=== PATIENT | male | born 2000 | race Caucasian/White ===

== ENCOUNTER 2018-09-03 22:48 | Emergency (ER) | payer OTHER ==
[~2018-09-03] VITALS: Ht 195.6 cm; Wt 106.8 kg
[2018-09-03 22:57] VITALS: Ht 195.6 cm; Wt 106.8 kg
[2018-09-03] MEDS ORDERED: VOLTAREN75 MG PO (23:40)
[2018-09-04 00:05] VITALS: BP 124/79
== END 2018-09-04 23:07 | disposition home or self-care (01) ==
LOC: EDBD 22:48 → D.ER 22:48
DX: S99.921A Unspecified injury of right foot, initial encounter (principal); W45.8XXA Other foreign body or object entering through skin, initial encounter; Y93.89 Activity, other specified; Y92.89 Other specified places as the place of occurrence of the external cause